=== PATIENT | male | born 1965 | race Caucasian/White ===

== ENCOUNTER 2017-04-18 08:00 | Emergency (ER) | payer BC ==
[2017-04-18 08:07] VITALS: PULSE 78; BMI 36.5
--- NOTE | 2017-04-18 08:43 | PDOC ---
History of Present Illness <Christian Hansen - Last Filed: 04/18/17 11:54> - General History Source: Patient Exam Limitations: No Limitations - History of Present Illness Travel History: No Initial Comments: 04/18/17 08:39 Came to emergency department for evaluation of right flank pain - acute onset this am at 3AM. was camping over the weekend, sleeping on the ground but did not experience any pain either Sunday or Sunday. States pain started this morning. Denies nausea or vomiting, denies any fevers, denies any dysuria or any noted changes in color of urine. Has no history of kidney stone or frequent UTIs. Has no discharge from his penis. Patient denies bowel problems, no diarrhea , constipation, normal bowel movement this morning. No family members are ill, 04/18/17 08:49 04/18/17 09:01 04/18/17 09:07 Timing/Duration: reports: getting worse, intermittent Quality: reports: moderate, cramping, stabbing Abdominal Pain Onset Location: reports: flank (RIGHT) Pain Radiation: reports: no radiation Activities at Onset: reports: none, other (UNCERTAIN) Alleviating Factors: improves with: None <Maria Fernanda Knox - Last Filed: 04/18/17 12:06> - General Chief Complaint: Pain Stated Complaint: LT SIDE PAIN Time Seen by Provider: 04/18/17 08:25 Past History <Christian Hansen - Last Filed: 04/18/17 11:54> - Travel Traveled outside of the country in the last 30 days: No Close contact w/someone who was outside of country & ill: No - Past Medical History Suicide Attempt (Hx): No - Surgical History Abdominal Surgery: Yes (gastric bypass) - Psycho/Social/Smoking Cessation Hx Anxiety: No Suicidal Ideation: No Smoking History: Former smoker Have you smoked in the past 12 months: No If you are a former smoker, when did you quit?: 20 Information on smoking cessation initiated: No Hx Alcohol Use: Yes (SOCIAL) Drug/Substance Use Hx: No Substance Use Type: None <Maria Fernanda Knox - Last Filed: 04/18/17 12:06> - Past Medical History Allergies/Adverse Reactions: Allergies Allergy/AdvReac Type Severity Reaction Status Date / Time NSAIDS (Non-Steroidal Allergy Verified 04/18/17 08:07 Anti-Inflamma Home Medications: Ambulatory Orders Acetaminophen W/ Codeine #3 [Tylenol # 3] 1 combo PO Q4H PRN #14 tablet MDD 6 Abd/GI Specific PMHX - Complaint Specific PMHX Colitis: No Gall Bladder Disease: No <AbilioMaria Fernanda - Last Filed: 04/18/17 12:06> Review of Systems - Review of Systems Able to Perform ROS?: Yes Is the patient limited Cymraes proficient: Yes Constitutional: Yes: Symptoms Reported, See HPI, Malaise. No: Chills, Fever, Loss of Appetite HEENTM: Yes: See HPI. No: Symptoms Reported, Eye Pain Respiratory: Yes: See HPI. No: Symptoms reported ABD/GI: Yes: Symptoms Reported, See HPI. No: Constipated, Diarrhea, Poor Appetite, Vomiting, Indigestion, Abdominal cramping : Yes: See HPI. No: Symptoms Reported, Burning, Dysuria, Discharge Musculoskeletal: Yes: Symptoms Reported, See HPI, Back Pain (reproducable pain with palpation) Integumentary: Yes: See HPI. No: Symptoms Reported, Bruising, Change in Color, Rash Neurological: Yes: See HPI. No: Symptoms reported, Headache Hematologic/Lymphatic: Yes: Symptoms Reported All Other Systems: Reviewed and Negative <Maria Fernanda Knox - Last Filed: 04/18/17 12:06> *Physical Exam - Vital Signs Last Vital Signs Temp Pulse Resp BP Pulse Ox 98.0 F 78 20 148/88 100 04/18/17 08:04 04/18/17 08:04 04/18/17 08:04 04/18/17 08:04 04/18/17 08:04 <Christian Hansen - Last Filed: 04/18/17 11:54> - Vital Signs Last Vital Signs Temp Pulse Resp BP Pulse Ox 98.0 F 78 20 148/88 100 04/18/17 08:04 04/18/17 08:04 04/18/17 08:04 04/18/17 08:04 04/18/17 08:04 - Physical Exam General Appearance: Yes: Nourished, Appropriately Dressed, Apparent Distress HEENT: positive: JAXON, Normal ENT Inspection, TMs Normal, Pharynx Normal. negative: Rhinorrhea, Sinus Tenderness Neck: positive: Supple. negative: Tender Respiratory/Chest: positive: Lungs Clear, Normal Breath Sounds Cardiovascular: positive: Regular Rhythm, Regular Rate Gastrointestinal/Abdominal: positive: Normal Bowel Sounds, Soft, Other ( morbidly obese ). negative: Tender Musculoskeletal: positive: Normal Inspection, Muscle Spasm (tenderness to upper paravertebral lumbar spinous muscles ). negative: CVA Tenderness, Vertebral Tenderness Extremity: positive: Normal Capillary Refill, Normal Inspection, Normal Range of Motion Integumentary: positive: Normal Color, Warm, Pale. 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 There is normal sinus rhythm with a normal rate. Rate of 69 The axis is normal. The intervals are normal. There is normal R wave progression There are no ST or T wave abnormalities. Impression: Normal twelve-lead EKG <Christian Hansen - Last Filed: 04/18/17 11:54> ED Treatment Course - LABORATORY CBC & Chemistry Diagram: 04/18/17 08:40 04/18/17 08:40 - ADDITIONAL ORDERS Additional order review: Laboratory Results 04/18/17 04/18/17 08:40 08:40 Sodium 141 Potassium 4.2 Chloride 103 Carbon Dioxide 29 Anion Gap 9 BUN 24 H Creatinine 1.0 D Creat Clearance w eGFR > 60 Random Glucose 117 H D Calcium 9.0 Total Bilirubin 0.7 AST 38 H D ALT 34 Alkaline Phosphatase 74 Total Protein 6.9 Albumin 3.9 Lipase 255 Urine Color Ltyellow Urine Appearance Clear Urine pH 5.0 Urine Protein Negative Urine Glucose (UA) Negative Urine Ketones Negative Urine Blood Negative Urine Nitrite Negative Urine Bilirubin Negative Urine Urobilinogen Negative Ur Leukocyte Esterase Negative 04/18/17 08:40 RBC 4.87 MCV 89.6 MCHC 34.1 RDW 13.2 MPV 7.8 Neutrophils % 83.4 H D Lymphocytes % 8.1 D Monocytes % 6.8 Eosinophils % 1.4 Basophils % 0.3 - Medications Given in the ED: ED Medications Discontinued Medications Generic Name Dose Route Start Last Admin Trade Name Freq PRN Reason Stop Dose Admin Acetaminophen 1,000 mg 04/18/17 08:47 04/18/17 09:15 Ofirmev Injection - IVPB 04/18/17 08:48 1,000 mg ONCE ONE Administration <Christian Hansen - Last Filed: 04/18/17 11:54> - LABORATORY CBC & Chemistry Diagram: 04/18/17 08:40 04/18/17 08:40 <Maria Fernanda Knox - Last Filed: 04/18/17 12:06> Progress Note - Progress Note Progress Note: Right flank pain, will check urinalysis for UTI versus kidney stone provided Tylenol and potential musculoskeletal pain <Maria Fernanda Knox - Last Filed: 04/18/17 12:06> Medical Decision Making - Medical Decision Making 04/18/17 12:04 labs/ CXR all normal. wILL d/c WITH T#3 for pain and have F/U with PCP for possible further testign. understands to rter for worsen pain or problems <Maria Fernanda Knox - Last Filed: 04/18/17 12:06> *DC/Admit/Observation/Transfer <TyroneChristian - Last Filed: 04/18/17 11:54> - Discharge Dispostion Admit: No <Maria Fernanda Knox - Last Filed: 04/18/17 12:06> Diagnosis at time of Disposition: Back pain Qualifiers: Back pain location: low back pain Chronicity: acute Back pain laterality: unspecified Sciatica presence: without sciatica Qualified Code(s): M54.5 - Low back pain - Discharge Dispostion Disposition: HOME Condition at time of disposition: Stable - Prescriptions Prescriptions: Acetaminophen W/ Codeine #3 [Tylenol # 3] 1 combo PO Q4H PRN #14 tablet MDD 6 PRN Reason: Pain - Referrals Referrals: Sarbijt Harvey MD [Staff Physician] - - Patient Instructions Printed Discharge Instructions: DI for Low Back Pain Additional Instructions: Rest, no heavy lifting or exercise until pain is resolved Hot soaks to neck and low back as often as possible/hot showers or Jacuzzis No massage or therapy until spasm is gone Tylenol 3 one or 2 tablets every 6 hours as needed for pain. If not significant improvement within 24 hours with medication and rest regime, followup with private physician for change in medications and /or therapy. - Post Discharge Activity Work/School Note: Back to Work
[2017-04-18] MEDS ORDERED: ACETAMINOPHEN 1000 MG/100 ML VIAL (NON FORMULARY) IVPB ONE (08:47)
[2017-04-18 09:06] LABS: BASOPHIL 0.3 % (0-2.0); EOSINOPHIL 1.4 % (0-4.5); MCH 30.5 pg (25.7-33.7); MCHC 34.1 g/dl (32.0-35.9); MEAN CELL VOLUME 89.6 fl (80-96); MEAN PLT VOLUME 7.8 fl (7.5-11.1); NEUTROPHILS 83.4 % (42.8-82.8); PLATELET COUNT 180 K/MM3 (134-434); RDW 13.2 % (11.9-15.9); WHITE BLOOD COUNT 10.2 K/mm3 (4.0-10.0)
[2017-04-18 09:09] LABS: URINE APPEARANCE CLEAR; URINE BILIRUBIN NEGATIVE (NEGATIVE); URINE BLOOD NEGATIVE (NEGATIVE); URINE COLOR LTYELLOW; URINE GLUCOSE (UA) NEGATIVE (NEGATIVE); URINE KETONE NEGATIVE (NEGATIVE); URINE LEUK ESTERASE NEGATIVE (NEGATIVE); URINE NITRITE NEGATIVE (NEGATIVE); URINE PROTEIN NEGATIVE (NEGATIVE); URINE UROBILINOGEN NEGATIVE E.U./dl (0.2-1.0)
[2017-04-18 09:30] LABS: ALBUMIN 3.9 g/dl (3.4-5.0); ANION GAP 9 (8-16); BILIRUBIN,TOTAL 0.7 mg/dL (0.2-1.0); CO2 29 mmol/L (21-32); COCKROFT - GAULT 134.56; GLUCOSE,RANDOM 117 mg/dL (74-106); SGOT/AST 38 U/L (15-37); SGPT/ALT 34 U/L (12-78); TOT PROT 6.9 g/dl (6.4-8.2)
[2017-04-18 09:31] LABS: ALK PHOS 74 U/L (45-117)
[2017-04-18 12:21] VITALS: BP 121/78; TEMP 98.5
--- NOTE | 2017-04-19 10:35 | EKG ---
Test Reason : Blood Pressure : / mmHG Vent. Rate : 069 BPM Atrial Rate : 069 BPM P-R Int : 158 ms QRS Dur : 094 ms QT Int : 408 ms P-R-T Axes : 043 -14 023 degrees QTc Int : 437 ms NORMAL SINUS RHYTHM NORMAL ECG WHEN COMPARED WITH ECG OF 05-MAR-2015 14:12, NO SIGNIFICANT CHANGE WAS FOUND Confirmed by JANN FRAGA MD ([id number]) on 04/19/2017 10:35:33 AM Referred By: Confirmed By:JANN FRAGA MD
== END 2017-04-18 12:18 | disposition home or self-care (01) ==
LOC: JER 08:00
PROC: 3E033NZ Introduction of Analgesics, Hypnotics, Sedatives into Peripheral Vein, Percutaneous Approach (ICD-10-PCS; principal; 2017-04-18)
DX: M54.5 Low back pain (principal)
CPT/HCPCS: 36415; 71020-TC; 80053; 81003; 83690; 85025; 87086; 93005; 93010; 99281-25

== ENCOUNTER 2019-11-26 19:42 | Emergency (ER) | payer BC ==
[2019-11-26 19:50] VITALS: BP 150/95; PULSE 71; TEMP 97.9; BMI 42.1
[2019-11-26 21:28] LABS: BASO % 0.3 % (0-2.0); HEMATOCRIT 46.2 % (35.4-49); HEMOGLOBIN 15.3 GM/dl (11.7-16.9); LYMPH % 22.8 % (8-40); MCH 30.4 pg (25.7-33.7); MCHC 33.2 g/dl (32.0-35.9); MEAN CELL VOLUME 91.6 fl (80-96); MEAN PLT VOLUME 8.3 fl (7.5-11.1); MONO % 9.2 % (3.8-10.2); NEUT % 65.7 % (42.8-82.8); PLATELET COUNT 211 K/MM3 (134-434); RBC 5.04 M/mm3 (4.00-5.60); RDW 13.2 % (11.9-15.9); WHITE BLOOD COUNT 6.1 K/mm3 (4.0-10.8)
[2019-11-26 21:41] LABS: BILIRUBIN,TOTAL 0.6 mg/dl (0.2-1); CALCIUM 8.8 mg/dl (8.5-10); CREATININE 0.8 mg/dl (0.55-1.3); POTASSIUM 4.4 mmol/L (3.5-5.1)
[2019-11-26] MEDS ORDERED: PANTOPRAZOLE 20 MG TABLET (FP) PO ONE (22:40)
[2019-11-26] MEDS ORDERED: PANTOPRAZOLE 40 MG TABLET (FP) ONE (22:45)
[2019-11-26] MEDS ORDERED: PANTOPRAZOLE 40 MG TABLET (FP) PO ONE (22:46)
--- NOTE | 2019-11-27 01:35 | PDOC ---
Documentation entered by Gladis Mast SCRIBE, acting as scribe for Moira Simmons MD. Moira Simmons MD: This documentation has been prepared by the pilar[employer]Pro Lincy, SCRIBE, under my direction and personally reviewed by me in its entirety. I confirm that the documentation accurately reflects all work, treatment, procedures, and medical decision making performed by me. History of Present Illness - General Chief Complaint: Shortness of Breath Stated Complaint: SOB History Source: Patient Exam Limitations: No Limitations - History of Present Illness Initial Comments: 11/26/19 20:29 The patient is a 54-year-old male with a past medical history significant for pneumonia (15 years ago, requiring hospitalization) and s/p gastric bypass (14 years ago) who presents to the emergency department with shortness of breath. The patient presents with 4 days of intermittent, nonpositional episodes of shortness of breath, like I wasnt getting oxygen. The patient reports the SOB is present even at rest, denies it being aggravated with exertion. The patient reports the symptoms worsened this morning, with a new onset of a headache. The patient reports the headache has been worsening throughout the day while at work, after work, he decided to follow up at an Urgent Care. Per records, their physical exam was significant for abnormal results and sent the patient to the ER for further management. Denies cough, fever, chills, chest pain, abdominal pain, nausea, vomiting, leg pain, or swelling. Denies recent travel. Denies personal or family history of blood clots. The patient reports the symptoms are similar to a prior episode of pneumonia 15 years ago requiring hospitalization. Denies a history of bronchitis. The patient reports he was diagnosed with the flu over the recent holidays, associated with productive cough with green sputum, which improved with antibiotics. Allergies: NSAIDS Social history: Former smoker (quit 21 years ago), Denies the use of alcohol or recreational drug. Surgical history: Gastric bypass (14 years ago). Family history: [place] (father, at age 57). PCP: None. Past History - Past Medical History Allergies/Adverse Reactions: Allergies Allergy/AdvReac Type Severity Reaction Status Date / Time NSAIDS (Non-Steroidal Allergy Verified 04/18/17 08:07 Anti-Inflamma Home Medications: Ambulatory Orders Pantoprazole Sodium [Protonix -] 20 mg PO DAILY #14 tablet.ec 11/26/19 - Surgical History Abdominal Surgery: Yes (gastric bypass) - Psycho Social/Smoking Cessation Hx Smoking History: Former smoker Have you smoked in the past 12 months: No If you are a former smoker, when did you quit?: 20 Hx Alcohol Use: Yes (SOCIAL) Drug/Substance Use Hx: No Substance Use Type: None Review of Systems - Review of Systems Able to Perform ROS?: Yes Comments:: 11/26/19 20:29 CONSTITUTIONAL: Pt denies Fever, Chills, weakness. HEENT: denies vision changes, sore throat RESPIRATORY: +shortness of breath. Denies cough, hemoptysis CARDIAC: denies chest pain, palpitations, lightheadedness, leg swelling ABD/GI: denies abd pain, nausea, vomiting, blood per rectum, melena, diarrhea : denies dysuria, frequency, discharge MSK: denies back pain, joint swelling SKIN: denies bruising, erythema, rash NEUROLOGICAL: +headache. Denies numbness, focal weakness, tingling, ataxia, weakness HEMATOLOGICAL: denies anemia, easy bruising, easy bleeding *Physical Exam - Physical Exam 11/26/19 20:30 GENERAL: The patient is awake, alert, and fully oriented, in no acute distress. HEAD: Normal with no signs of trauma. EYES: Pupils equal, round and reactive to light, extraocular movements intact, sclera anicteric, conjunctiva clear with no pallor. ENT: Ears normal, nares patent, oropharynx clear without exudates. Moist mucous membranes. NECK: Normal range of motion, supple without lymphadenopathy, JVD, or masses. LUNGS: Breath sounds equal, clear to auscultation bilaterally. No wheeze/ crackles. HEART: Regular rate and rhythm, normal S1 and S2 without murmur or rub. ABDOMEN: Soft/nontender/nondistended. BS wnl. No guarding or rebound. No palpable masses. No hepatosplenomegaly. EXTREMITIES: +1+ ankle edema bilaterally. Normal range of motion. No clubbing or cyanosis. No cords, erythema, or tenderness. NEUROLOGICAL: Cranial nerves II through XII grossly intact. Normal speech, normal gait. PSYCH: Normal mood, normal affect. SKIN: Warm, Dry, normal turgor, no rashes or lesions noted. ED Treatment Course - LABORATORY CBC & Chemistry Diagram: 11/26/19 21:20 11/26/19 21:20 Medical Decision Making - Medical Decision Making As noted above, this 54-year-old man was referred to the ER from urgent care where he had gone earlier this evening with shortness of breath for a few days. the patient denies any worsening with exertion or position. He states that it is similar to sensation he felt when he had pneumonia in the past. He does have a nonproductive cough currently but no fever. Exam as noted. Although patient has only one risk factor for coronary artery disease (father in his 50s from [place]), myocardial ischemia/cardiomyopathy is still possible etiology for his shortness of breath/bilateral ankle edema. Chest x-ray and twelve-lead electrocardiogram performed: 12-lead electrocardiogram shows normal sinus rhythm at 66 bpm; axis, intervals and waveforms are all normal. No evidence of acute ST or T wave abnormalities. No evidence of acute cardiac arrhythmia. Chest x-ray, PA and lateral views performed: Interpretation by Dr. Mercado of the radiology staff-no evidence of acute pulmonary disease. Patient has 2 risk factors for pulmonary embolus: Recent immobilization ( patient states that he was very sick with the flu 2 to 3 weeks ago, essentially bedbound) and lower extremity edema. Conversely, his room air pulse oximetry is 100%. Nonetheless, d-dimer was evaluated. CBC, chemistry profile, troponin level, d-dimer were all normal except for slightly elevated BUN level. Results of the work-up discussed with the patient and his . Patient remembered at this time that he has been having frequent episodes of dyspepsia in the last few months. He also has occasional regurgitation of gastric acids, especially at night when lying down. These occurrences raise the possibility the patient may have GERD with possible aspiration. For this reason, patient will be started on Protonix with first dose given here in the emergency room. Patient does not have a general medical doctor and he was given referral information for the [facility]. He should call the office tomorrow and arrange follow-up within the next 48 hours. He should return to the ER if he has worsening shortness of breath or experiences chest pain, palpitations, fever/chills Discharge - Discharge Information Problems reviewed: Yes Clinical Impression/Diagnosis: Shortness of breath GERD (gastroesophageal reflux disease) Qualifiers: Esophagitis presence: esophagitis presence not specified Qualified Code(s): K21.9 - Gastro-esophageal reflux disease without esophagitis Condition: Stable Disposition: HOME - Additional Discharge Information Prescriptions: Pantoprazole Sodium [Protonix -] 20 mg PO DAILY #14 tablet.ec - Follow up/Referral Referrals: [facility] [Provider Group] - Patient Discharge Instructions Patient Printed Discharge Instructions: GERD Diet Additional Instructions: Protonix 20 mg daily until seen by your doctor Elevate head of bed at night Avoid foods that trigger GERD symptoms, especially after 3 PM Return to ER if you have severe shortness of breath, chest pain, palpitations Call [facility] in AM to arrange follow-up - Post Discharge Activity
--- NOTE | 2019-11-28 13:52 | EKG ---
Test Reason : Blood Pressure : / mmHG Vent. Rate : 066 BPM Atrial Rate : 066 BPM P-R Int : 164 ms QRS Dur : 090 ms QT Int : 422 ms P-R-T Axes : 037 -21 008 degrees QTc Int : 442 ms NORMAL SINUS RHYTHM WHEN COMPARED WITH ECG OF 18-APR-2017 09:10, NO SIGNIFICANT CHANGE WAS FOUND Confirmed by RUTH BARNETT MD ([id number]) on 11/28/2019 1:52:31 PM Referred By: Confirmed By:RUTH BARNETT MD
== END 2019-11-26 22:48 | disposition home or self-care (01) ==
LOC: FER 19:42
DX: R06.02 Shortness of breath (principal); K21.9 Gastro-esophageal reflux disease without esophagitis; Z88.8 Allergy status to other drugs, medicaments and biological substances; Z87.891 Personal history of nicotine dependence; Z98.84 Bariatric surgery status
CPT/HCPCS: 36415; 71046-TC-FY; 80053; 82550; 84484; 85025; 85379; 93005; 99284-25

== ENCOUNTER 2021-05-26 21:20 | Emergency (ER) | payer BC ==
[2021-05-26 21:31] VITALS: BP 139/88; PULSE 87; TEMP 98.3; BMI 42.2
== END 2021-05-26 21:55 | disposition home or self-care (01) ==
LOC: FER 21:20
DX: J01.90 Acute sinusitis, unspecified (principal); J02.9 Acute pharyngitis, unspecified
CPT/HCPCS: 99281-25

== ENCOUNTER 2021-06-09 22:16 | Emergency (ER) | payer BC ==
[2021-06-09 22:36] VITALS: BP 139/88; PULSE 79; TEMP 99.1; BMI 41.8
== END 2021-06-09 23:08 | disposition home or self-care (01) ==
LOC: FER 22:16
DX: R53.1 Weakness (principal)
CPT/HCPCS: 99283-25

== ENCOUNTER 2022-08-03 05:38 | Day surgery (SDC) | payer OTHER, BC ==
[2022-08-01 10:54] VITALS: BMI 47.1
[2022-08-03] MEDS ORDERED: ACETAMINOPHEN 325 MG TABLET (FP) PO PRN (07:14)
[2022-08-03] MEDS ORDERED: LACTATED RINGERS SOLUTION 1,000 ML IV SCH (07:15)
[2022-08-03] MEDS ORDERED: LIDOCAINE HCL 2% JELLY 10 ML CARTRIDGE ONE (07:32)
[2022-08-03] MEDS ORDERED: MIDAZOLAM HCL 2 MG/2 ML SINGLE DOSE VIAL ONE (07:33)
[2022-08-03 08:26] VITALS: TEMP 97.5
[2022-08-03 09:08] VITALS: BP 149/88; PULSE 72; RESP 20
== END 2022-08-03 09:08 | disposition home or self-care (01) ==
LOC: JASU-ENDO 05:38
PROVIDERS: ATTEND Internal Medicine Gastroenterology
PROC: 0DB68ZX Excision of Stomach, Via Natural or Artificial Opening Endoscopic, Diagnostic (ICD-10-PCS; 2022-08-03)
PROC: 0DJD8ZZ Inspection of Lower Intestinal Tract, Via Natural or Artificial Opening Endoscopic (ICD-10-PCS; principal; 2022-08-03 08:00)
DX: R19.7 Diarrhea, unspecified (principal); K64.8 Other hemorrhoids; K21.00 Gastro-esophageal reflux disease with esophagitis, without bleeding; Z87.19 Personal history of other diseases of the digestive system; K29.50 Unspecified chronic gastritis without bleeding
CPT/HCPCS: 88305-TC; 88342-TC